=== PATIENT | female | born 1965 | race Asian ===

== ENCOUNTER 2018-08-30 16:42 | Inpatient (IN) | payer OTHER ==
[2018-08-30 18:41] LABS: ADD UMIC YES; UR ASCORBIC ACID NEGATIVE (NEGATIVE); UR BILIRUBIN (Dip) NEGATIVE (NEGATIVE); UR BLOOD (Dip) NEGATIVE (NEGATIVE); UR CLARITY SLIGHTLY CLOUDY (CLEAR); UR COLOR YELLOW (YELLOW); UR GLUCOSE (Dip) NEGATIVE (NEGATIVE); UR KETONES (Dip) 1+ mg/dL (NEGATIVE); UR LEUKOCYTE ESTERASE (Dip) 2+ Leu/ul (NEGATIVE); UR MUCUS FEW /HPF (NONE SEEN); UR NITRITE (Dip) NEGATIVE (NEGATIVE); UR RBC 3 /HPF (0-5); UR SPECIFIC GRAVITY (Dip) 1.017 (1.003-1.030); UR SQUAMOUS EPITHELIAL CELL FEW /HPF (FEW); UR TOTAL PROTEIN (Dip) NEGATIVE (NEGATIVE); UR UROBILINOGEN (Dip) 1+ mg/dL (NEGATIVE); UR WBC 22 /HPF (0-5)
[2018-08-30] MEDS: DOCUSATE SODIUM 100 MG CAP PO (20:28)
[2018-08-30] MEDS: SENNA TAB PO (20:28)
[2018-08-31 07:16] LABS: ADD MAN DIFF? NO
[2018-08-31 07:25] LABS: BASOPHILS % 0.5 % (0.0-2.0); EOSINOPHILS # 0.1 10^3/ul (0.0-0.5); HEMATOCRIT 43.6 % (37.0-47.0); HEMOGLOBIN 14.3 g/dl (12.0-16.0); LYMPHOCYTES # 2.1 10^3/ul (0.8-2.9); LYMPHOCYTES % 35.3 % (15.0-51.0); MEAN CORPUSCULAR HEMOGLOBIN 30.6 pg (29.0-33.0); MEAN CORPUSCULAR HGB CONC 32.8 g/dl (32.0-37.0); MEAN CORPUSCULAR VOLUME 93.4 fl (82.0-101.0); MONOCYTE # 0.6 10^3/ul (0.3-0.9); MONOCYTES % 10.5 % (0.0-11.0); NEUTROPHIL # 3.2 10^3/ul (1.6-7.5); NEUTROPHILS % 52.4 % (39.0-77.0); PLATELET COUNT 215 10^3/UL (140-415); RED BLOOD COUNT 4.67 10^6/ul (4.20-5.40); RED CELL DISTRIBUTION WIDTH 11.8 % (11.5-14.5)
[2018-08-31 07:25] LABS: WHITE BLOOD COUNT 6.1 10^3/ul (4.8-10.8)
[2018-08-31 07:48] LABS: ALANINE AMINOTRANSFERASE 31 IU/L (13-69); ALBUMIN 4.5 g/dl (3.3-4.9); ALBUMIN/GLOBULIN RATIO 1.25; ALKALINE PHOSPHATASE 65 IU/L (42-121); ANION GAP 9 (5-13); ASPARTATE AMINO TRANSFERASE 33 IU/L (15-46); BILIRUBIN,INDIRECT 1.1 mg/dl (0-1.1); BILIRUBIN,TOTAL 1.1 mg/dl (0.2-1.3); BLOOD UREA NITROGEN 17 mg/dl (7-20); CALCIUM 9.8 mg/dl (8.4-10.2); CARBON DIOXIDE 28 mmol/L (21-31); CHLORIDE 104 mmol/L (97-110); CREATININE 0.59 mg/dl (0.44-1.00); Estimated GFR > 60 mL/min (>60); GLUCOSE 98 mg/dl (70-220); POTASSIUM 4.1 mmol/L (3.5-5.1); SODIUM 141 mmol/L (135-144); TOTAL PROTEIN 8.1 g/dl (6.1-8.1)
[2018-08-31] MEDS: DOCUSATE SODIUM 100 MG CAP PO ×2 (08:33→20:41)
[2018-08-31] MEDS: FAMOTIDINE 20 MG TAB PO (08:34)
[2018-08-31] MEDS: LISINOPRIL 5 MG TAB PO (09:00)
[2018-08-31] MEDS ORDERED: hydrALAzine 20 MG INJ IV (10:00)
[2018-08-31] MEDS: LEVETIRACETAM 500 MG (PMX) 100 ML IVPB ×2 (11:26→20:41)
[2018-08-31] MEDS: ACETAMINOPHEN 325 MG TAB PO (12:43)
[2018-08-31] MEDS: SENNA TAB PO (20:41)
[2018-08-31] MEDS: LACTULOSE 30ML CUP PO (22:41)
[2018-09-01] MEDS: FAMOTIDINE 20 MG TAB PO (08:13)
[2018-09-01] MEDS: DOCUSATE SODIUM 100 MG CAP PO ×2 (08:13→20:59)
[2018-09-01] MEDS: LISINOPRIL 5 MG TAB PO (08:14)
[2018-09-01] MEDS: LEVETIRACETAM 500 MG (PMX) 100 ML IVPB ×2 (09:04→20:59)
[2018-09-01] MEDS: NITROFURANTOIN (SR) 100 MG CAP PO ×2 (10:50→20:59)
[2018-09-01] MEDS: ACETAMINOPHEN 325 MG TAB PO (18:09)
[2018-09-01] MEDS: SENNA TAB PO (21:00)
[2018-09-02] MEDS: LEVETIRACETAM 500 MG (PMX) 100 ML IVPB ×2 (08:45→21:16)
[2018-09-02] MEDS: DOCUSATE SODIUM 100 MG CAP PO ×2 (08:51→21:16)
[2018-09-02] MEDS: FAMOTIDINE 20 MG TAB PO (08:52)
[2018-09-02] MEDS: NITROFURANTOIN (SR) 100 MG CAP PO ×2 (08:52→21:16)
[2018-09-02] MEDS: LISINOPRIL 5 MG TAB PO (08:52)
[2018-09-02] MEDS: SENNA TAB PO (21:16)
[2018-09-03 06:52] LABS: ADD MAN DIFF? NO
[2018-09-03 06:57] LABS: WHITE BLOOD COUNT 4.2 10^3/ul (4.8-10.8)
[2018-09-03 06:57] LABS: BASOPHILS % 0.5 % (0.0-2.0); EOSINOPHILS % 0.7 % (0.0-7.0); HEMOGLOBIN 13.2 g/dl (12.0-16.0); LYMPHOCYTES # 1.6 10^3/ul (0.8-2.9); LYMPHOCYTES % 38.1 % (15.0-51.0); MEAN CORPUSCULAR HEMOGLOBIN 30.6 pg (29.0-33.0); MEAN CORPUSCULAR VOLUME 92.6 fl (82.0-101.0); MEAN PLATELET VOLUME 11.3 fl (7.4-10.4); MONOCYTE # 0.3 10^3/ul (0.3-0.9); MONOCYTES % 7.8 % (0.0-11.0); NEUTROPHIL # 2.2 10^3/ul (1.6-7.5); NEUTROPHILS % 52.7 % (39.0-77.0); PLATELET COUNT 168 10^3/UL (140-415); RED BLOOD COUNT 4.32 10^6/ul (4.20-5.40); RED CELL DISTRIBUTION WIDTH 11.4 % (11.5-14.5)
[2018-09-03 07:20] LABS: MAGNESIUM 1.9 mg/dl (1.7-2.5)
[2018-09-03 07:20] LABS: PHOSPHORUS 4.3 mg/dl (2.5-4.9)
[2018-09-03 07:27] LABS: ANION GAP 8 (5-13); BLOOD UREA NITROGEN 13 mg/dl (7-20); CALCIUM 9.4 mg/dl (8.4-10.2); CARBON DIOXIDE 27 mmol/L (21-31); CHLORIDE 105 mmol/L (97-110); CREATININE 0.52 mg/dl (0.44-1.00); Estimated GFR > 60 mL/min (>60); GLUCOSE 92 mg/dl (70-220); POTASSIUM 3.9 mmol/L (3.5-5.1); SODIUM 140 mmol/L (135-144)
[2018-09-03] MEDS: LEVETIRACETAM 500 MG (PMX) 100 ML IVPB (09:35)
[2018-09-03] MEDS: FAMOTIDINE 20 MG TAB PO (09:36)
[2018-09-03] MEDS: DOCUSATE SODIUM 100 MG CAP PO ×2 (09:36→21:06)
[2018-09-03] MEDS: LISINOPRIL 5 MG TAB PO (09:37)
[2018-09-03] MEDS: NITROFURANTOIN (SR) 100 MG CAP PO ×2 (09:37→21:06)
[2018-09-03] MEDS: LEVETIRACETAM 500 MG TAB PO ×2 (13:02→21:06)
[2018-09-03] MEDS: SENNA TAB PO (21:06)
[2018-09-04] MEDS: LEVETIRACETAM 500 MG TAB PO ×2 (08:07→21:10)
[2018-09-04] MEDS: FAMOTIDINE 20 MG TAB PO (08:07)
[2018-09-04] MEDS: DOCUSATE SODIUM 100 MG CAP PO ×2 (08:07→21:10)
[2018-09-04] MEDS: NITROFURANTOIN (SR) 100 MG CAP PO ×2 (08:08→21:10)
[2018-09-04] MEDS: LISINOPRIL 5 MG TAB PO (08:08)
[2018-09-04] MEDS: SENNA TAB PO (21:10)
[2018-09-05] MEDS: ACETAMINOPHEN 325 MG TAB PO ×2 (01:06→14:31)
[2018-09-05] MEDS: NITROFURANTOIN (SR) 100 MG CAP PO ×2 (08:28→21:06)
[2018-09-05] MEDS: LEVETIRACETAM 500 MG TAB PO ×2 (08:28→21:07)
[2018-09-05] MEDS: DOCUSATE SODIUM 100 MG CAP PO ×2 (08:28→21:07)
[2018-09-05] MEDS: LISINOPRIL 5 MG TAB PO (08:29)
[2018-09-05] MEDS: FAMOTIDINE 20 MG TAB PO (08:29)
[2018-09-05] MEDS: SENNA TAB PO (21:07)
[2018-09-06] MEDS: LACTULOSE 30ML CUP PO (06:39)
[2018-09-06] MEDS: FAMOTIDINE 20 MG TAB PO (08:43)
[2018-09-06] MEDS: LEVETIRACETAM 500 MG TAB PO ×2 (08:43→21:09)
[2018-09-06] MEDS: NITROFURANTOIN (SR) 100 MG CAP PO ×2 (08:43→21:09)
[2018-09-06] MEDS: DOCUSATE SODIUM 100 MG CAP PO ×2 (08:44→21:09)
[2018-09-06] MEDS: LISINOPRIL 5 MG TAB PO (09:00)
[2018-09-06] MEDS: SENNA TAB PO (21:09)
[2018-09-07] MEDS: DOCUSATE SODIUM 100 MG CAP PO ×2 (08:23→20:42)
[2018-09-07] MEDS: LEVETIRACETAM 500 MG TAB PO ×2 (08:23→20:42)
[2018-09-07] MEDS: FAMOTIDINE 20 MG TAB PO (08:23)
[2018-09-07] MEDS: NITROFURANTOIN (SR) 100 MG CAP PO ×2 (08:23→20:43)
[2018-09-07] MEDS: LISINOPRIL 5 MG TAB PO (08:24)
[2018-09-07] MEDS: SENNA TAB PO (20:42)
[2018-09-08] MEDS: DOCUSATE SODIUM 100 MG CAP PO ×2 (08:30→21:26)
[2018-09-08] MEDS: LEVETIRACETAM 500 MG TAB PO ×2 (08:31→21:26)
[2018-09-08] MEDS: NITROFURANTOIN (SR) 100 MG CAP PO (08:31)
[2018-09-08] MEDS: LISINOPRIL 5 MG TAB PO (08:33)
[2018-09-08] MEDS: FAMOTIDINE 20 MG TAB PO (08:33)
[2018-09-08] MEDS: SENNA TAB PO (21:26)
[2018-09-09] MEDS: LACTULOSE 30ML CUP PO (08:23)
[2018-09-09] MEDS: LEVETIRACETAM 500 MG TAB PO ×2 (08:24→20:42)
[2018-09-09] MEDS: FAMOTIDINE 20 MG TAB PO (08:24)
[2018-09-09] MEDS: DOCUSATE SODIUM 100 MG CAP PO ×2 (08:26→20:42)
[2018-09-09] MEDS: LISINOPRIL 5 MG TAB PO (08:28)
[2018-09-09] MEDS: SENNA TAB PO (20:42)
[2018-09-10] MEDS: MAGNESIUM HYDROXIDE 30ML CUP PO (06:15)
[2018-09-10 07:49] LABS: ADD MAN DIFF? NO
[2018-09-10 07:51] LABS: BASOPHILS % 0.8 % (0.0-2.0); EOSINOPHILS # 0.1 10^3/ul (0.0-0.5); EOSINOPHILS % 1.4 % (0.0-7.0); HEMATOCRIT 37.9 % (37.0-47.0); HEMOGLOBIN 12.4 g/dl (12.0-16.0); LYMPHOCYTES # 2.1 10^3/ul (0.8-2.9); LYMPHOCYTES % 56.6 % (15.0-51.0); MEAN CORPUSCULAR HEMOGLOBIN 30.4 pg (29.0-33.0); MEAN CORPUSCULAR HGB CONC 32.7 g/dl (32.0-37.0); MEAN CORPUSCULAR VOLUME 92.9 fl (82.0-101.0); MEAN PLATELET VOLUME 11.5 fl (7.4-10.4); MONOCYTE # 0.4 10^3/ul (0.3-0.9); MONOCYTES % 9.9 % (0.0-11.0); NEUTROPHIL # 1.1 10^3/ul (1.6-7.5); NEUTROPHILS % 31.3 % (39.0-77.0); PLATELET COUNT 166 10^3/UL (140-415); RED BLOOD COUNT 4.08 10^6/ul (4.20-5.40); RED CELL DISTRIBUTION WIDTH 11.7 % (11.5-14.5)
[2018-09-10 07:51] LABS: WHITE BLOOD COUNT 3.6 10^3/ul (4.8-10.8)
[2018-09-10] MEDS: FAMOTIDINE 20 MG TAB PO (08:08)
[2018-09-10] MEDS: DOCUSATE SODIUM 100 MG CAP PO ×2 (08:08→20:26)
[2018-09-10] MEDS: LEVETIRACETAM 500 MG TAB PO ×2 (08:08→20:26)
[2018-09-10] MEDS: LISINOPRIL 5 MG TAB PO (08:09)
[2018-09-10 08:13] LABS: PHOSPHORUS 4.3 mg/dl (2.5-4.9)
[2018-09-10 08:13] LABS: MAGNESIUM 1.9 mg/dl (1.7-2.5)
[2018-09-10 08:15] LABS: ANION GAP 9 (5-13); BLOOD UREA NITROGEN 14 mg/dl (7-20); CALCIUM 9.7 mg/dl (8.4-10.2); CARBON DIOXIDE 28 mmol/L (21-31); CHLORIDE 103 mmol/L (97-110); CREATININE 0.53 mg/dl (0.44-1.00); Estimated GFR > 60 mL/min (>60); GLUCOSE 88 mg/dl (70-220); POTASSIUM 3.9 mmol/L (3.5-5.1); SODIUM 140 mmol/L (135-144)
[2018-09-10] MEDS: SOD CHLORIDE 0.9% 500 ML IV (15:24)
[2018-09-10 17:08] LABS: ADD MAN DIFF? NO
[2018-09-10 17:10] LABS: BASOPHILS % 0.6 % (0.0-2.0); EOSINOPHILS # 0.1 10^3/ul (0.0-0.5); HEMATOCRIT 36.8 % (37.0-47.0); HEMOGLOBIN 12.2 g/dl (12.0-16.0); LYMPHOCYTES # 2.1 10^3/ul (0.8-2.9); MEAN CORPUSCULAR HEMOGLOBIN 31.3 pg (29.0-33.0); MEAN CORPUSCULAR HGB CONC 33.2 g/dl (32.0-37.0); MEAN CORPUSCULAR VOLUME 94.4 fl (82.0-101.0); MEAN PLATELET VOLUME 11.3 fl (7.4-10.4); MONOCYTE # 0.5 10^3/ul (0.3-0.9); NEUTROPHIL # 2.3 10^3/ul (1.6-7.5); NEUTROPHILS % 46.4 % (39.0-77.0); PLATELET COUNT 164 10^3/UL (140-415); RED CELL DISTRIBUTION WIDTH 11.6 % (11.5-14.5)
[2018-09-10 17:27] LABS: LACTIC ACID 1.2 mmol/L (0.5-2.0)
[2018-09-10 17:28] LABS: ANION GAP 6 (5-13); BLOOD UREA NITROGEN 15 mg/dl (7-20); CALCIUM 8.9 mg/dl (8.4-10.2); CARBON DIOXIDE 30 mmol/L (21-31); CHLORIDE 105 mmol/L (97-110); CREATININE 0.49 mg/dl (0.44-1.00); Estimated GFR > 60 mL/min (>60); GLUCOSE 103 mg/dl (70-220); POTASSIUM 4.1 mmol/L (3.5-5.1); SODIUM 141 mmol/L (135-144)
[2018-09-10] MEDS: SENNA TAB PO (20:26)
[2018-09-10 23:24] LABS: ADD UMIC YES; UR ASCORBIC ACID 40 mg/dL (NEGATIVE); UR BILIRUBIN (Dip) NEGATIVE (NEGATIVE); UR BLOOD (Dip) NEGATIVE (NEGATIVE); UR CLARITY CLEAR (CLEAR); UR COLOR YELLOW (YELLOW); UR GLUCOSE (Dip) NEGATIVE (NEGATIVE); UR KETONES (Dip) NEGATIVE (NEGATIVE); UR LEUKOCYTE ESTERASE (Dip) TRACE Leu/ul (NEGATIVE); UR MUCUS FEW /HPF (NONE SEEN); UR NITRITE (Dip) NEGATIVE (NEGATIVE); UR RBC 0 /HPF (0-5); UR SPECIFIC GRAVITY (Dip) 1.013 (1.003-1.030); UR SQUAMOUS EPITHELIAL CELL FEW /HPF (FEW); UR TOTAL PROTEIN (Dip) NEGATIVE (NEGATIVE); UR UROBILINOGEN (Dip) NEGATIVE (NEGATIVE); UR WBC 3 /HPF (0-5)
[2018-09-11] MEDS: DOCUSATE SODIUM 100 MG CAP PO (08:30)
[2018-09-11] MEDS: FAMOTIDINE 20 MG TAB PO (08:30)
[2018-09-11] MEDS: LACTULOSE 30ML CUP PO (08:30)
[2018-09-11] MEDS: LEVETIRACETAM 500 MG TAB PO (09:00)
== END 2018-09-11 11:30 | disposition home health service (06) | DRG 57 ==
LOC: VRC 16:42
DX: I69.351 Hemiplegia and hemiparesis following cerebral infarction affecting right dominant side (principal); N39.0 Urinary tract infection, site not specified; R13.10 Dysphagia, unspecified; H91.3 Deaf nonspeaking, not elsewhere classified; I10 Essential (primary) hypertension; B96.20 Unspecified Escherichia coli [E. coli] as the cause of diseases classified elsewhere; I95.9 Hypotension, unspecified
CPT/HCPCS: 80048; 80053; 81001; 83605; 83735; 84100; 85025; 87081; 87086; 92507; 92523; 92526; 92610; 97110; 97112; 97116; 97163; 97167; 97530; 97535